=== PATIENT | female | born 1940 | race Caucasian/White ===

== ENCOUNTER 2021-06-07 10:40 | Emergency (ER) | payer OTHER ==
[~2021-06-07] VITALS: Ht 162.6 cm; Wt 59.9 kg
[2021-06-07] MEDS ORDERED: LISINOPRIL10 MG PO (11:03)
[2021-06-07] MEDS ORDERED: PROTONIX40 M2 PO (11:04)
[2021-06-07] MEDS ORDERED: SLOW FE142 MG PO (11:04)
[2021-06-07] MEDS ORDERED: CARVEDILOL12.5 MG PO (11:04)
[2021-06-07] MEDS ORDERED: BUSPAR30 MG PO (11:04)
[2021-06-07] MEDS ORDERED: VITAMIN C500 M1 PO (11:05)
[2021-06-07] MEDS ORDERED: FAMOTIDINE 40 M40 M1 PO (11:05)
[2021-06-07] MEDS ORDERED: PLAVIX 75 MG TA75 MG PO (11:06)
[2021-06-07] MEDS ORDERED: ASA81BEC PO (11:06)
[2021-06-07] MEDS ORDERED: VITAMIN B-121000 MC2 SUBLING (11:06)
[2021-06-07] MEDS ORDERED: TOLTERODINE TART4 MG PO (11:06)
[2021-06-07] MEDS ORDERED: PRAVASTATIN SOD80 MG PO (11:06)
[2021-06-07] MEDS ORDERED: FLONASE 0.05%50 MCG NARES (11:07)
[2021-06-07] MEDS ORDERED: VITAMIN D21250 MCG PO (11:07)
[2021-06-07] MEDS ORDERED: ZYRTEC10 M4 PO (11:08)
[2021-06-07 11:39] LABS: ABSOLUTE NEUTROPHILS 3.8 thou/uL (1.4-8.2); BASOPHILS 0.2 % (0.0-2.0); EOSINOPHILS 6.2 % (0.0-3.0); HEMATOCRIT 39.4 % (37.0-47.0); HEMOGLOBIN 12.9 gm/dL (12.0-15.0); LYMPHOCYTES 26.4 % (24.0-44.0); MCH 30.7 pg (26.0-34.0); MCHC 32.8 g/dL (28.0-37.0); MCV 93.7 fL (80.0-100.0); MONOCYTES 8.6 % (1.0-8.0); PLATELET COUNT 208 thou/uL (150-400); POLYS 58.6 % (36.0-66.0); RBC 4.21 mil/uL (4.20-5.00); RDW 13.6 % (10.5-14.5); WBC 6.5 thou/uL (4.0-11.0)
[2021-06-07 11:52] LABS: CALCIUM 9.3 mg/dL (8.5-10.1); CREATININE 1.1 mg/dL (0.6-1.0); POTASSIUM 4.7 mmol/L (3.5-5.1)
[2021-06-07 12:22] VITALS: BP 152/60
== END 2021-06-07 12:22 | disposition home or self-care (01) ==
LOC: ER 10:40
PROVIDERS: Nurse Practitioner
DX: H53.2 Diplopia (principal); R51.9 Headache, unspecified; I10 Essential (primary) hypertension; M81.0 Age-related osteoporosis without current pathological fracture; Z88.2 Allergy status to sulfonamides